=== PATIENT | male | born 1965 ===

== ENCOUNTER 2021-10-11 22:46 | Emergency (ER) | payer OTHER, SELFPAY ==
[2021-10-11 23:16] VITALS: BP 97/74; PULSE 68; RESP 20; TEMP 36.8; O2SAT 98; BMI 36.1
== END 2021-10-12 02:34 | disposition left against medical advice (07) ==
LOC: HO.ED 10-12 00:11
PROVIDERS: Emergency Provider Emergency Medicine
DX: R07.9 Chest pain, unspecified (principal); I11.0 Hypertensive heart disease with heart failure; I50.9 Heart failure, unspecified
CPT/HCPCS: 99281; 99282